=== PATIENT | female | born 1970 | race Caucasian/White ===

== ENCOUNTER 2022-09-25 08:21 | Outpatient (CLI) | payer BC, SELFPAY ==
[2022-09-25] VITALS (7 sets, daily range): BP systolic 125–157; BP diastolic 81–115; PULSE 70–72; RESP 11–18; TEMP 36.2; O2SAT 95–99
--- NOTE | 2022-09-25 08:24 | DI.RAD.S_ITS ---
PROCEDURE: PAIN C/T FACET INJ/BLK 1ST L INDICATIONS: SPINAL STENOSIS COMPARISON: [facility], , CERVICAL SPINE INTERLAMINAR, 12/19/2021, 14:50. FINDINGS: Fluoroscopic spot filming was performed to verify placement of spinal needles on the right at the C4-C5, C5-C6, and C6-C7 levels, as labeled on the films. Appropriate location of the needle tips was confirmed by injection of iodinated contrast. IMPRESSION: Intraprocedural examination demonstrating appropriate positions of the needles. Dictated by: Meliton Nguyen M.D. on 09/25/2022 at 9:12 Approved by: Meliton Nguyen M.D. on 09/25/2022 at 9:13
[2022-09-25] MEDS: MIDAZOLAM 2 MG/2 ML VIAL 4 MG IV (09:38)
[2022-09-25] MEDS: BUPIVACAINE 0.5% (PF) 10 ML VIAL 2 ML INJ (09:39)
[2022-09-25] MEDS: DEXAMETHASONE 10 MG/ML VIAL 30 MG INJ (09:39)
[2022-09-25] MEDS: IOPAMIDOL 15 ML VIAL 3 ML INJ (09:40)
--- NOTE | 2022-09-25 09:52 | P.PCN_ITS ---
Date/Time/Diagnoses Date of procedure: 09/25/22 Time of procedure: 09:52 Pre-procedure diagnosis: 1. FACET ARTHROPATHY 2. AXIAL NECK PAIN Post-procedure diagnosis: same Procedure Notes Procedure: 1. FLUOROSCOPICALLY GUIDED, CONTRAST-CONTROLLED RIGHT C4/5, C5/6 AND C6/7 FACET JOINT INJECTIONS WITH CONSCIOUS SEDATION. Indications: Razia is referred by LISA Tovar for treatment of Axial Neck Pain Physician: Kilo Bajwa Total Fluoroscopy time (seconds): 13 Total sedation minutes: 13 Complications: none Procedure in detail & Post-procedure care: DESCRIPTION OF PROCEDURE Fluoroscopically guided, contrast-controlled right C4/5, C5/6 and C6/7 facet joint injections with conscious sedation. Following review of allergy and review of potential side effects and complications, including, but not necessarily limited to, infection, allergic reaction, local tissue breakdown, stroke, temporary or permanent nerve injury and paralysis, the patient indicated that the patient understood and agreed to p roceed. An informed consent document was signed by the patient, witnessed by a nurse, and placed in the patient's chart. Additionally, other treatment options including medications, modalities, and physical therapy were reviewed with the patient. After review of previous anaesthesic history and IV conscious sedation the patient was deemed safe to proceed with today?s procedure with IV conscious sedation as ASA class II designation. Safety time-out was performed to confirm patient ID, procedure to be performed and site of procedure. IV sedation was accomplished with a combination of 4mg of Versed was administered by the RN after DO order, titrated to patient comfort during the course of the procedure while the patient remained responsive to all verbal commands. In the prone position, following sterile prep and drape of the cervical spine region, the posterior aspect of the right C4/5, C5/6 and C6/7 facet joints were identified fluoroscopically. The skin was anesthetized via a 25-gauge 1.5-inch needle with 1% lidocaine solution into the corresponding facet joints. At this point, a 25-gauge 2.5-inch spinal needle was atraumatically introduced and advanced under fluoroscopic guidance into the corresponding facet joints. Following negative aspiration, injections of approximately 0.2-cc of Isovue 200 confirmed interarticular placement without vascular uptake. At this point, a total of 1cc including 0.5cc or 5mg of dexamethasone combined with 0.5cc of 1% lidocaine solution was injected without complication into each of the corresponding facet joints. The procedure tolerated the procedure well without signs or symptoms of complications prior to transfer to the recovery area continued monitoring without incident. The patient was then transferred to the recovery area where they were observed for an appropriate period of time after the injection. The patient reported a VAS score of 7 prior to the procedure and a post- procedure VAS of 1. POST OP INSTRUCTIONS They were provided a Pain Log to continue to record their response to the target-specific procedure prior to their follow-up visit with their referring physician. Additionally, specific post-injection care instructions and a contact number to our office were provided if concerns arise regarding possible complications associated with the procedure are suspected.
== END 2022-09-25 10:16 | disposition home or self-care (01) ==
LOC: RAD 08:24
PROVIDERS: PCP Registered Nurse; Referring Provider Physical Medicine & Rehabilitation; Visit Provider Physical Medicine & Rehabilitation
DX: M47.812 Spondylosis without myelopathy or radiculopathy, cervical region (principal)
CPT/HCPCS: 64490; 64491; 64492; 99152; J1100; J2250

== ENCOUNTER 2023-02-24 16:22 | Emergency (ER) | payer BC, SELFPAY ==
[2023-02-24 16:44] VITALS: BP 125/68; PULSE 93; RESP 22; TEMP 36.7; O2SAT 97; BMI 26.2
--- NOTE | 2023-02-24 17:22 | ED_ITS ---
HPI - Asthma <Edna Martinez PA-C - Last Filed: 02/24/23 17:25> General Chief Complaint: Asthma Stated Complaint: cold asthma acting up Time Seen by Provider: 02/24/23 16:54 Source: patient Mode of arrival: Ambulatory History of Present Illness HPI Narrative: 52-year-old female presents to the ED with 5 days of upper respiratory infection symptoms. Patient complains of a cough, sore throat, losing her voice. Patient denies fever, chills, chest pain, shortness of breath, wheezing, nausea, vomiting. Patient states that she has been diagnosed with reactive airway disease in the past, has a QVAR inhaler for it, however does not use it. Patient however states that she has no trouble breathing or wheezing. Related Data Home Medications Medication Instructions Recorded Confirmed cholecalciferol (vitamin D3) 250 250 mcg PO DAILY 08/20/22 02/25/23 mcg (10,000 unit) capsule estradiol 0.5 mg tablet 0.5 mg PO DAILY 08/20/22 02/25/23 ibuprofen 200 mg tablet (Advil) 200 mg PO Q6H PRN 08/20/22 02/25/23 metformin 500 mg tablet,extended 500 mg PO DAILY 08/20/22 02/25/23 release 24 hr methocarbamol 500 mg tablet 500 mg PO BID PRN 08/20/22 02/25/23 metronidazole 0.75 % topical cream 1 applic topical BID PRN 08/20/22 02/25/23 Previous Rx's Medication Instructions Recorded meloxicam 15 mg tablet 15 mg PO DAILY #30 tabs 08/20/22 benzonatate 200 mg capsule 200 mg PO TID PRN cough #30 caps 02/24/23 albuterol sulfate 90 mcg/actuation 2 puff inhalation Q6H PRN cough or 02/25/23 aerosol inhaler shortness of breath #6.7 grams fluticasone propionate 110 2 puff inhalation BID #12 grams 02/25/23 mcg/actuation HFA aerosol inhaler prednisone 20 mg tablet See Rx Instructions PO DAILY #9 02/25/23 tabs Allergies Allergy/AdvReac Type Severity Reaction Status Date / Time amoxicillin Allergy Severe Anaphylaxis Verified 02/25/23 10:47 sulfamethoxazole Allergy Intermediate Hives Verified 02/25/23 10:47 [From ] trimethoprim [From ] Allergy Intermediate Hives Verified 02/25/23 10:47 Review of Systems <Edna Martinez PA-C - Last Filed: 02/24/23 17:25> Constitutional Constitutional: Denies chills, Denies fatigue, Denies fever(s), Denies frequent falls, Denies lethargy and Denies weakness Eyes Eyes: Denies change in vision, Denies eye discharge, Denies irritation and Denie s loss of vision ENT Ears, Nose, Mouth, and Throat: Denies change in voice, Denies dizziness, Reports hoarseness, Denies neck pain, Reports sore throat and Denies throat swelling Cardiovascular Cardiovascular: Denies chest pain, Denies irregular heart rhythm, Denies lightheadedness, Denies palpitations, Denies dyspnea, Denies dyspnea on exertion and Denies orthopnea Respiratory Respiratory: Reports cough, Denies dyspnea, Denies dyspnea on exertion and Denies wheezing Gastrointestinal Gastrointestinal: Denies abdominal pain, Denies change in bowel habits, Denies diarrhea, Denies nausea and Denies vomiting Musculoskeletal Musculoskeletal: Denies neck pain and Denies numbness Integumentary/Breasts Skin/Breast: Denies pruritus, Denies erythema, Denies rash and Denies wounds Neurologic Neurologic: Denies behavioral changes, Denies confusion, Denies dizziness, Denies frequent falls, Denies loss of vision, Denies numbness and Denies weakness Psychiatric Psychiatric: Denies anxiety, Denies behavioral changes, Denies confusion, Denies depression, Denies homicidal ideation and Denies suicidal ideation Endocrine Endocrine: Denies fatigue, Denies flushing and Denies palpitations Hematologic/Lymphatic Hematologic/Lymphatic: Denies easy bruising Allergic/Immunologic Allergic/Immunologic: Denies urticaria, Denies throat swelling and Denies wheezing Patient History <Edna Martinez PA-C - Last Filed: 02/24/23 17:25> Medical History Facet arthropathy, cervical Degenerative cervical spinal stenosis Surgical History H/O: hysterectomy Family History Father Hepatitis C virus Mother Asthma Grandfather Stroke Social History Smoking Status: Never smoker Smoking Status: Never smoker alcohol intake frequency: holidays/special occasions only Substance Use Type: does not use Exam <Edna Martinez PA-C - Last Filed: 02/24/23 17:25> Narrative Exam Narrative: Const General:?cooperative, healthy appearing and comfortable HENMS Head:?normal to inspection Ears:?hearing grossly normal bilaterally Nose:?external nose normal Face and sinus:?normal facial exam and sinuses nontender Mouth:?oral mucosae normal Throat:?posterior oropharynx normal Eyes General:?appearance normal, both eyes and all related structures Neck Neck:?normal visual inspection and no lymphadenopathy noted Resp Effort & Inspection:?normal respiratory effort Auscultation:?clear to auscultation bilaterally Cardio Rate:?regular rate Rhythm:?regular rhythm Neuro General:?patient alert, patient awake and patient oriented x3 Initial Vital Signs Initial Vital Signs: Vital Signs Temperature 98.0 F 02/24/23 16:44 Pulse Rate 93 H 02/24/23 16:44 Respiratory Rate 22 02/24/23 16:44 Blood Pressure 125/68 02/24/23 16:44 Pulse Oximetry 97 02/24/23 16:44 Oxygen Delivery Method Room Air 02/24/23 16:44 <Cabrera Lou MD - Last Filed: 03/06/23 10:09> Initial Vital Signs Initial Vital Signs: Vital Signs Temperature 98.0 F 02/24/23 16:44 Pulse Rate 93 H 02/24/23 16:44 Respiratory Rate 22 02/24/23 16:44 Blood Pressure 125/68 02/24/23 16:44 Pulse Oximetry 97 02/24/23 16:44 Oxygen Delivery Method Room Air 02/24/23 16:44 Course <Edna Martinez PA-C - Last Filed: 02/24/23 17:25> Vital Signs Vital signs: Vital Signs - 8 hr 02/24/23 16:44 Temperature 98.0 F Pulse Rate 93 H Respiratory Rate 22 Blood Pressure 125/68 Pulse Oximetry 97 Oxygen Delivery Method Room Air <Cabrera Lou MD - Last Filed: 03/06/23 10:09> Vital Signs Vital signs: Vital Signs - 8 hr 02/24/23 16:44 Temperature 98.0 F Pulse Rate 93 H Respiratory Rate 22 Blood Pressure 125/68 Pulse Oximetry 97 Oxygen Delivery Method Room Air MDM - Asthma <Edna Martinez PA-C - Last Filed: 02/24/23 17:25> MDM Narrative Medical decision making narrative: 52-year-old female presents to the ED with 5 days of upper respiratory infection symptoms. Lungs are clear to auscultation. Patient is breathing normally and comfortably. Patient's sister symptoms are most consistent with a URI causing laryngitis. Recommend supportive measures with Tessalon Perles, hot teas, good hydration. Recommend follow-up with PCP as soon as possible. ED return precautions discussed with patient. Patient verbalized understanding. Medical records reviewed: Yes Discharge Plan Departure Patient Disposition: Home Clinical Impression: Upper respiratory infection Qualifiers: URI type: unspecified viral URI Qualified Code(s): J06.9 - Acute upper respiratory infection, unspecified Instructions: DI for Viral Upper Respiratory Infection -- Adult, DI for Laryngitis Activity Restrictions/Additional Instructions: You were evaluated in the ED today for a cough. It appears that you have a upper respiratory infection that might be causing pharyngitis. You are being prescribed Tessalon Perles for cough. Please stay well hydrated with water, hot teas, honey. Please try to rest her voice as much as possible seen on lose her voice. Please follow-up with your PCP as soon as possible. Return to the ED if you have worsening symptoms, chest pain, shortness of breath. Prescriptions: New benzonatate 200 mg capsule 200 mg PO TID PRN (Reason: cough) Qty: 30 0RF No Action prednisone 20 mg tablet See Rx Instructions PO DAILY Qty: 9 0RF Rx Instructions: 2 tabs po daily x 3 days then 1 tab po daily x 3 days orally daily; fluticasone propionate 110 mcg/actuation HFA aerosol inhaler 2 puff inhalation BID Qty: 12 0RF albuterol sulfate 90 mcg/actuation HFA aerosol inhaler 2 puff inhalation Q6H PRN (Reason: cough or shortness of breath) Qty: 6.7 0RF metformin 500 mg tablet extended release 24 hr 500 mg PO DAILY metronidazole 0.75 % cream 1 applic topical BID PRN Patient Comments: APPLY THIN LAYER TO WHOLE FACE TWICE DAILY AFTER WASHING estradiol 0.5 mg tablet 0.5 mg PO DAILY Patient Comments: TAKE 1 TABLET BY MOUTH EVERY DAY FOR HORMONE REPLACEMENT cholecalciferol (vitamin D3) 250 mcg (10,000 unit) capsule 250 mcg PO DAILY methocarbamol 500 mg tablet 500 mg PO BID PRN ibuprofen [Advil] 200 mg tablet 200 mg PO Q6H PRN Hold Instructions: Home Medication placed on hold at Doctor's office meloxicam 15 mg tablet 15 mg PO DAILY Qty: 30 2RF Referrals: Kira Tovar ARNP [Primary Care Provider] - Stand Alone Forms: Patient Portal/API ED Sign-out <Cabrera Lou MD - Last Filed: 03/06/23 10:09> Cosign ED Attending Cosignature Attestation: I was immediately available in the department for consultation. This documentation has been reviewed and I agree with assessment and plan. Supervised by Cabrera Lou MD
== END 2023-02-24 17:29 | disposition home or self-care (01) ==
PROVIDERS: Emergency Provider Student in an Organized Health Care Education/Training Program; PCP Registered Nurse
DX: J06.9 Acute upper respiratory infection, unspecified (principal)
CPT/HCPCS: 99281; 99282

== ENCOUNTER → 2023-02-25 11:21 | Outpatient (CLI) | payer BC, SELFPAY ==
[2023-02-25 12:07] LABS: Influenza A - CEPHEID Flu A NEGATIVE (NEGATIVE); Influenza B - CEPHEID Flu B NEGATIVE (NEGATIVE); Respiratory Syncytial Virus Negative (Negative)
[2023-02-25 13:20] LABS: COVID-19 CEPHEID 4-PLEX PCR Negative (Negative)
== END ==
PROVIDERS: PCP Registered Nurse; Visit Provider Physician Assistant
DX: R05.1 Acute cough (principal)
CPT/HCPCS: 0241U

== ENCOUNTER → 2023-03-04 12:09 | Outpatient (CLI) | payer BC, SELFPAY ==
--- NOTE | 2023-03-04 12:12 | DI.RAD.S_ITS ---
PROCEDURE: XR CHEST 2V INDICATIONS: acute cough asthma exacerbation TECHNIQUE: 2 views of the chest were acquired. COMPARISON: None. FINDINGS: Surgical changes and devices: None. Lungs and pleura: Lungs are clear. No pleural effusions or pneumothorax. Mediastinum: Mediastinal contours are normal. Heart size is normal. Bones and chest wall: No suspicious bony abnormalities. Soft tissues appear unremarkable. IMPRESSION: No acute cardiopulmonary abnormality is seen. Dictated by: Hariret Nichols M.D. on 03/05/2023 at 0:09 Approved by: Harriet Nichols M.D. on 03/05/2023 at 0:09
== END ==
PROVIDERS: PCP Registered Nurse; Referring Provider Registered Nurse; Visit Provider Registered Nurse
DX: J45.21 Mild intermittent asthma with (acute) exacerbation (principal); R05.1 Acute cough; J04.0 Acute laryngitis
CPT/HCPCS: 71046

== ENCOUNTER → 2023-10-14 | Outpatient (CLI) | payer BC, SELFPAY ==
--- NOTE | 2023-10-14 14:47 | DI.RAD.S_ITS ---
PROCEDURE: XR FINGER RT MIN 2V INDICATIONS: FINGER PAIN TECHNIQUE: AP hand, 2 views of the 4th finger(s) acquired. COMPARISON: None. FINDINGS: Bones: No fractures or dislocations. No suspicious bony lesions. Soft tissues: No suspicious soft tissue calcifications. IMPRESSION: No definite radiographic abnormality. If pain persists with conservative management, consider repeat plain films or cross sectional imaging such as CT or MRI for further assessment. Dictated by: Jostin Bush RRA Interpreted: Jihan Navarro MD on 10/15/2023 at 18:55 Transcribed by: DEDE on 10/15/2023 at 18:55 Approved by: Jihan Navarro M.D. on 10/16/2023 at 16:44
== END ==
LOC: RAD 14:46
PROVIDERS: PCP Registered Nurse; Referring Provider Registered Nurse; Visit Provider Registered Nurse
DX: M79.644 Pain in right finger(s) (principal); T14.8XXA Other injury of unspecified body region, initial encounter
CPT/HCPCS: 73140

== ENCOUNTER → 2023-10-23 15:18 | Outpatient (CLI) | payer BC, SELFPAY ==
--- NOTE | 2023-10-23 15:19 | DI.MG.S_ITS ---
BILATERAL DIGITAL SCREENING MAMMOGRAM 3D/2D WITH CAD: 10/23/2023 CLINICAL: Routine screening. Comparison is made to exams dated: 12/21/2020 mammogram, 12/08/2019 mammogram, 02/03/2018 mammogram, and 12/27/2020 mammogram - out side. Both breasts are heterogeneously dense, which may obscure small masses (category c / 51-75% glandular tissue). Current study was also evaluated with a Computer Aided Detection (CAD) system. No significant masses, calcifications, or other findings are seen in either breast. There has been no significant interval change. IMPRESSION: NEGATIVE There is no mammographic evidence of malignancy. A 1 year screening mammogram is recommended. Based on the Tyrer Cuzick model (a risk assessment model) the patient's lifetime risk is 12.9% and her 10 year risk is 4.0%. According to the ACR, ACS, and NCCN guidelines, an annual breast MRI exam along with mammogram is recommended if the patient's lifetime risk is 20% or greater. This exam was interpreted at Station ID: [id number]. NOTE: For mammograms, a report in lay terms will be sent to the patient. Approximately 15% of breast malignancies will not be visualized mammographically. In the management of a palpable breast mass, a negative mammogram must not discourage biopsy of a clinically suspicious lesion. Electronically Signed By: Carl dempsey/mt:10/24/2023 08:45:42 letter sent: Normal Exam ACR BI-RADS Category 1: Negative 3341F
== END ==
PROVIDERS: PCP Registered Nurse; Referring Provider Registered Nurse; Visit Provider Registered Nurse
DX: Z12.31 Encounter for screening mammogram for malignant neoplasm of breast (principal); R92.333 Mammographic heterogeneous density, bilateral breasts
CPT/HCPCS: 77063; 77067

== ENCOUNTER 2023-12-09 07:35 | Day surgery (SDC) | payer BC, SELFPAY ==
--- NOTE | 2023-12-09 | PATH_ITS ---
[facility] Accession Number: [id number] No. of containers..01 Tissue . 01 Material submitted: . colon - 70 . 01 Diagnosis: A. COLON AT 70 CM: Tubular adenoma. [facility] 12/11/2023 1554 Local . 01 Electronically signed: . Carol Farrell MD, Pathologist NPI- [id number] . 01 Gross description: . 70: Received in formalin is 1 fragment(s) of rushing, soft tissue measuring 0.4 x 0.4 x 0.2 cm submitted entirely in 1 cassette(s) /JENNY 12/10/2023 2345 Local . 01 Pathologist provided ICD-10: Z12.11 . 01 CPT . 593102 Specimen Comment: A courtesy copy of this report has been sent to [phone] Performed at: [address] [facility] [id number] MD Adriel Villanueva MD Phone: [phone]
[2023-12-09 08:05] VITALS: BP 124/81; PULSE 77; RESP 16; TEMP 36.8; O2SAT 98
--- NOTE | 2023-12-09 08:30 | PM.HP.1 ---
History of Present Illness History of Present Illness Date Patient Seen: 12/09/23 Chief complaint: Screening Colonoscopy Narrative: Ten year screening colonoscopy. No symptoms PFSH Medical History Facet arthropathy, cervical Degenerative cervical spinal stenosis Surgical History H/O: hysterectomy Family History Father Hepatitis C virus Mother Asthma Grandfather Stroke Social History Smoking Status: Never smoker alcohol intake: current Meds Home Medications and Allergies Home Medications Medication Instructions Recorded Confirmed Type cholecalciferol (vitamin D3) 250 250 mcg PO DAILY 08/20/22 02/25/23 History mcg (10,000 unit) capsule estradiol 0.5 mg tablet 0.5 mg PO DAILY 08/20/22 02/25/23 History ibuprofen 200 mg tablet (Advil) 200 mg PO Q6H PRN 08/20/22 02/25/23 History meloxicam 15 mg tablet 15 mg PO DAILY #30 tabs 08/20/22 02/25/23 Rx methocarbamol 500 mg tablet 500 mg PO BID PRN 08/20/22 02/25/23 History metronidazole 0.75 % topical cream 1 applic topical BID PRN 08/20/22 02/25/23 History benzonatate 200 mg capsule 200 mg PO TID PRN cough #30 caps 02/24/23 02/25/23 Rx albuterol sulfate 90 mcg/actuation 2 puff inhalation Q6H PRN cough or 02/25/23 12/09/23 Rx aerosol inhaler shortness of breath #6.7 grams fluticasone propionate 110 2 puff inhalation BID #12 grams 02/25/23 02/25/23 Rx mcg/actuation HFA aerosol inhaler prednisone 20 mg tablet See Rx Instructions PO DAILY #9 02/25/23 02/25/23 Rx tabs Allergies Allergy/AdvReac Type Severity Reaction Status Date / Time amoxicillin Allergy Severe Anaphylaxis Verified 12/09/23 07:52 sulfamethoxazole Allergy Intermediate Hives Verified 12/09/23 07:52 [From ] trimethoprim [From ] Allergy Intermediate Hives Verified 12/09/23 07:52 Exam Vital Signs (past 8 hours): - 12/09/23 08:05 Temperature 98.2 F Pulse Rate 77 Respiratory Rate 16 Blood Pressure 124/81 Pulse Oximetry 98 Oxygen Delivery Method Room Air Oxygen Delivery Method Room Air Narrative Exam Narrative: Oropharynx free of lesions Chest clear to auscultation percussion Cardiac exam reveals no S3 or murmur Assessment & Plan Assessment & Plan narrative: Screening colonoscopy. Risks, benefits, alternatives have been explained. Time-Based Coding :: [TOTAL MINUTES] spent with patient and on the chart (including review of chart, obtaining history, exam, reviewing outside data, placing orders, documenting exam and treatment plan, and counseling patient) on [DATE].
--- NOTE | 2023-12-09 08:31 | PM.OP.COLON ---
Operative Date/Time/Diagnoses Date of procedure: 12/09/23 Pre-op diagnosis: See indication and findings Procedure & Clinicians Study performed: Colonoscopy Indications: 10 year screening Surgeon: Tyron Martin Procedure Notes Procedure in detail: After informed consent was obtained the patient was placed in left lateral decubitus position. The video colonoscope was introduced the rectum slowly advanced cecum preparation was good. On slow withdrawal mucosa was carefully examined. The scope was removed. The patient tolerated the procedure well. Blood loss none complications none Sedation mac Findings 1. Normal colonoscopy to cecum Patient should have follow-up colonoscopy in 10 years
[2023-12-09 08:55] VITALS: BP 94/62; PULSE 76; RESP 20; TEMP 36.6; O2SAT 92
[2023-12-09 09:00] VITALS: BP 93/63; PULSE 70; RESP 17; O2SAT 92
[2023-12-09 09:05] VITALS: BP 101/67; PULSE 69; RESP 17; O2SAT 96
[2023-12-09 09:15] VITALS: BP 103/76; PULSE 79; RESP 14; TEMP 36.2; O2SAT 92
== END 2023-12-09 09:23 | disposition home or self-care (01) ==
PROVIDERS: PCP Registered Nurse; Referring Provider Internal Medicine Gastroenterology; Visit Provider Internal Medicine Gastroenterology
PROC: 0DJD8ZZ Inspection of Lower Intestinal Tract, Via Natural or Artificial Opening Endoscopic (ICD-10-PCS; CPT 45378; principal; 2023-12-09 08:30)
DX: Z12.11 Encounter for screening for malignant neoplasm of colon (principal); D12.6 Benign neoplasm of colon, unspecified
CPT/HCPCS: 45380; J2704

== ENCOUNTER → 2024-01-16 19:50 | Outpatient (CLI) | payer BC, SELFPAY ==
--- NOTE | 2024-01-16 19:52 | DI.MRI.S_ITS ---
PROCEDURE: MR SHOULDER RT WO CON INDICATIONS: shoulder pain TECHNIQUE: Noncontrast oblique coronal T2 fast spin echo with fat saturation, oblique sagittal T1 spin echo and T2 fast spin echo with fat saturation, axial T1 spin echo and T2 fast spin echo with fat saturation through the shoulder. COMPARISON: None. FINDINGS: Image quality: Excellent Rotator cuff: Low-grade interstitial tear at the footprint of the junction of the supraspinatus and infraspinatus. Additional low-grade bursa sided tear at the critical zone of the junction of the supraspinatus and infraspinatus. The teres minor is unremarkable. The subscapularis is unremarkable. No muscle edema or fatty atrophy. Bones and bursae: Moderate degenerative changes of the acromioclavicular joint. Type 1 acromion. No os acromiale. Mild subacromial/subdeltoid bursitis. Multifocal mild subchondral cystic changes and subchondral marrow edema in the humeral head, reactive. No acute fracture. No focal chondral defect of the glenohumeral articulation. Capsule and soft tissues: Superior labral tear, extending anteriorly to the anterior superior labrum. No paralabral cyst. Mild tenosynovitis of the extra-articular biceps tendon. The intra-articular biceps tendon is intact. No significant glenohumeral effusion. Mild subcoracoid bursitis. IMPRESSION: 1. Low-grade tear at the junction of the supraspinatus and infraspinatus. 2. Moderate degenerative changes of the acromioclavicular joint. 3. Labral tear. 4. Mild tenosynovitis of the extra-articular biceps tendon. Dictated by: Marilyn Duarte M.D. on 01/17/2024 at 9:51 Approved by: Marilyn Duarte M.D. on 01/17/2024 at 9:57
== END ==
LOC: MRI 19:51
PROVIDERS: PCP Registered Nurse; Referring Provider Orthopaedic Surgery; Visit Provider Orthopaedic Surgery
DX: M75.111 Incomplete rotator cuff tear or rupture of right shoulder, not specified as traumatic (principal); M65.921 Unspecified synovitis and tenosynovitis, right upper arm; S43.431A Superior glenoid labrum lesion of right shoulder, initial encounter; M25.511 Pain in right shoulder; G89.29 Other chronic pain
CPT/HCPCS: 73221

== ENCOUNTER → 2024-02-24 14:42 | Outpatient (CLI) | payer BC, SELFPAY ==
--- NOTE | 2024-02-24 14:44 | DI.RAD.S_ITS ---
PROCEDURE: XR CHEST 2V INDICATIONS: PNEUMONIA TECHNIQUE: 2 views of the chest were acquired. COMPARISON: [facility], CR, XR CHEST 2V, 03/04/2023, 12:23. FINDINGS: Surgical changes and devices: None. Lungs and pleura: Lungs are clear. No pleural effusions or pneumothorax. Mediastinum: Mediastinal contours are normal. Heart size is normal. Bones and chest wall: No suspicious bony abnormalities. Soft tissues appear unremarkable. IMPRESSION: No acute cardiothoracic process. Dictated by: Abner Larios M.D. on 02/25/2024 at 15:01 Approved by: Abner Larios M.D. on 02/25/2024 at 15:02
== END ==
PROVIDERS: PCP Registered Nurse; Referring Provider Family Medicine; Visit Provider Family Medicine
DX: J15.8 Pneumonia due to other specified bacteria (principal)
CPT/HCPCS: 71046

== ENCOUNTER → 2024-04-01 15:23 | Outpatient (CLI) | payer OTHER, SELFPAY ==
--- NOTE | 2024-04-01 15:26 | DI.RAD.S_ITS ---
PROCEDURE: XR KNEE RT 3V INDICATIONS: Right knee strain TECHNIQUE: 3 views of the knee were acquired. COMPARISON: None. FINDINGS: Bones: No osseous abnormality. Joints: Mild patellofemoral and tibiofemoral degenerative change noted. No effusion. Slight lateral patellar subluxation appreciated on sunrise view Soft tissues: Negative IMPRESSION: Mild degeneration Dictated by: Micheal Deluna M.D. on 04/02/2024 at 17:45 Approved by: Micheal Deluna M.D. on 04/02/2024 at 17:46
== END ==
LOC: RAD 15:25
PROVIDERS: PCP Registered Nurse; Referring Provider Nurse Practitioner Family; Visit Provider Nurse Practitioner Family
DX: S86.911A Strain of unspecified muscle(s) and tendon(s) at lower leg level, right leg, initial encounter (principal); X58.XXXA Exposure to other specified factors, initial encounter
CPT/HCPCS: 73562

== ENCOUNTER → 2024-11-19 15:14 | Outpatient (CLI) | payer OTHER, SELFPAY ==
--- NOTE | 2024-11-19 15:15 | DI.MG.S_ITS ---
MM screening mammo BI: 11/19/2024. BI-RADS: 0 CLINICAL: 54-year old female for bilateral screening mammogram. Tyrer-Cuzick lifetime risk of 12.1%. No personal or first-degree family history of breast cancer. PRIOR EXAMS 10/23/2023, Outside priors - 12/27/2020, 12/21/2020, 12/08/2019, 02/03/2018. MAMMOGRAPHY TECHNIQUE: 2D and 3D (tomosynthesis) digital mammographic views obtained, with additional images as needed for full coverage. Current study was also evaluated with a Computer Aided Detection (CAD) system. DENSITY C. The breasts are heterogeneously dense, which may obscure small masses. MAMMOGRAPHY FINDINGS Right: No suspicious mass, asymmetry, microcalcification, or other abnormality seen. No significant change from comparison. Left: MLO only, Upper, Middle depth: Asymmetry needing additional imaging evaluation. IMPRESSION: Right * No evidence of malignancy. Left (Asymmetry): MLO only, Upper, Middle depth * Incomplete - asymmetry needing additional imaging evaluation. RECOMMENDATIONS Left: MLO only, Upper, Middle depth * Further evaluation with diagnostic mammography and diagnostic ultrasound. Ultrasound to be performed only if needed. OVERALL ASSESSMENT CATEGORY BI-RADS-0: Incomplete - Need Additional Imaging Evaluation. ELECTRONICALLY SIGNED: Nadine Felipe M.D. on 11/20/2024 at 10:14:27 AM PT Interpreting Station ID: [id number]
== END ==
PROVIDERS: PCP Registered Nurse; Referring Provider Registered Nurse; Visit Provider Registered Nurse
DX: Z12.31 Encounter for screening mammogram for malignant neoplasm of breast (principal); R92.333 Mammographic heterogeneous density, bilateral breasts
CPT/HCPCS: 77063; 77067

== ENCOUNTER → 2024-12-11 10:24 | Outpatient (CLI) | payer OTHER, SELFPAY ==
--- NOTE | 2024-12-11 10:25 | DI.MG.S_ITS ---
MM diagnostic mammo unilat LT, US breast LT limited: 12/11/2024 BI-RADS: 1 CLINICAL: 54-year old female for left diagnostic mammogram and left diagnostic breast ultrasound that is a recall from screening on 11/19/2024. Tyrer-Cuzick lifetime risk of 12.1%. No personal or first-degree family history of breast cancer. PRIOR EXAMS Mammogram(s): 11/19/2024, 10/23/2023, 12/21/2020, 12/08/2019, 02/03/2018. MAMMOGRAPHY TECHNIQUE: 2D and 3D (tomosynthesis) digital mammographic views obtained, with additional images as needed for full coverage. Current study was also evaluated with a Computer Aided Detection (CAD) system. ULTRASOUND TECHNIQUE: Real-time valladares scale imaging of the area of clinical interest was performed with image documentation. TARGETED Left Breast Ultrasound: Real-time ultrasound exam was performed focused to area of clinical and/or imaging concern. DENSITY Left: C. The breast is heterogeneously dense, which may obscure small masses. MAMMOGRAPHY FINDINGS Left: MLO only, Central, Middle depth. Previous report: MLO only, Upper: The asymmetry seen on recent screening mammogram did not persist with additional imaging and is consistent with superimposition of normal breast tissue. ULTRASOUND FINDINGS Left: Outer at 3:00, 6 cm from nipple. Previous report: MLO only, Upper: There is no sonographic abnormality to account for imaging concern on mammography. IMPRESSION: Left * No evidence of malignancy. RECOMMENDATIONS Bilateral * Annual screening mammography. COMMENTS: Findings and recommendations were conveyed to the patient during today's evaluation. OVERALL ASSESSMENT CATEGORY BI-RADS-1: Negative. [employer] recommends annual screening mammography beginning at age 40 for women with average risk of breast cancer. ELECTRONICALLY SIGNED: Odalis Jackson M.D. on 12/11/2024 at 11:31:01 AM PT Interpreting Station ID: [id number]
== END ==
LOC: MAMMO 10:24
PROVIDERS: PCP Registered Nurse; Referring Provider Registered Nurse; Visit Provider Registered Nurse
DX: R92.8 Other abnormal and inconclusive findings on diagnostic imaging of breast (principal); R92.332 Mammographic heterogeneous density, left breast; R63.5 Abnormal weight gain
CPT/HCPCS: 36415; 76642; 77065; 80053; 80061; 83036; 83525; 84443; 85025; G0279

== ENCOUNTER → 2024-12-11 11:14 | Outpatient (CLI) | payer OTHER, SELFPAY ==
[2024-12-11 11:53] LABS: Add Manual Diff / Slide Review NO; Hematocrit 42.2 % (36-46); Hemoglobin 14.2 g/dL (12.0-16.0); Lymphocytes Absolute Auto 1500 /uL (1100-4500); Mean Corpuscular HGB Conc 33.8 % (30-36); Mean Corpuscular Hemoglobin 30.1 PG (26-34); Mean Corpuscular Volume 89.0 fL (80-100); Platelet Count 249 X10^3/uL (150-400)
[2024-12-11 12:16] LABS: Hemoglobin A1C% w Est Avg Glu 5.7 % (4.0-6.0)
[2024-12-11 12:20] LABS: Alanine Aminotransferase 27 IU/L (<35); Albumin 4.8 g/dL (3.5-5.0); Albumin Globulin Ratio 1.9 (1.0-2.8); Alkaline Phosphatase 49 U/L (38-126); Blood Urea Nitrogen 14 mg/dL (7-17); Calcium 9.4 mg/dL (8.4-10.2); Carbon Dioxide 26 mmol/L (22-32); Chloride 103 mmol/L (98-107); Cholesterol 296 mg/dL (140-199); Estimated Glomerular Filt Rate > 60 mL/min (>60); Globulin 2.5 g/dL (1.7-4.1); Glucose 108 mg/dL (70-99); HDL Cholesterol 60 mg/dL (40-60); HEMOLYSIS < 15 (0-50); Potassium 4.8 mmol/L (3.4-5.1); Sodium 137 mmol/L (137-145); Total Protein 7.3 g/dL (6.3-8.2); Triglycerides 215 mg/dL (35-150)
[2024-12-11 12:53] LABS: Thyroid Stimulating Hormone 1.79 uIU/mL (0.47-4.68)
[2024-12-13 07:08] LABS: Insulin Level Total 13.1 uIU/mL (2.6-24.9)
== END ==
PROVIDERS: PCP Registered Nurse; Visit Provider Family Medicine
DX: R63.5 Abnormal weight gain (principal)
CPT/HCPCS: 36415; 80053; 80061; 83036; 83525; 84443; 85025